=== PATIENT | male | born 1960 | race Hispanic/Latino ===

== ENCOUNTER → 2017-10-03 | Outpatient (CLI) | payer BC ==
[~2017-10-03] MED LIST: GLUCOPHAGE500 MG PO; METFORMIN HCL500 MG PO; SIMVASTATIN40 MG PO; cholesterol med
--- NOTE | 2017-10-06 08:44 | Diagnostic Imaging Report ---
TECHNIQUE: Magnetic resonance imaging of the RIGHT SHOULDER was performed WITHOUT injected contrast. COMPARISON: None available. HISTORY: Right shoulder pain FINDINGS: MUSCLES AND TENDONS: Rotator Cuff: Tendons: Full-thickness tear of the anterior supraspinatus at the humeral insertion measuring approximately 1 cm in transverse dimension. Axial image 10, coronal image 10, and sagittal image 7. Additional partial thickness articular sided tearing of the supraspinatus and anterior infraspinatus with retraction measuring approximately 2.5 cm coronal image 14. Muscles: No focal muscle atrophy. Biceps Tendon: The long head of the biceps tendon is intact in the bicipital groove. Intra-articular tendinosis. GLENOHUMERAL JOINT: Glenoid Labrum: No displaced tear. Articular Cartilage: No focal defect. AC JOINT AND ACROMION: Mild hypertrophic degenerative changes of the acromioclavicular joint with reactive edema. Mild subacromial spurring. BONE: No acute fracture. SOFT TISSUES: Subacromial subdeltoid bursal fluid. IMPRESSION: Full-thickness tear of the anterior supraspinatus at the humeral insertion with posterior propagation as a partial-thickness articular sided tear into the infraspinatus tendon with retraction of the deep fibers. Acromioclavicular arthrosis with reactive edema. Long head biceps intra-articular tendinosis Signed by: Dr. Audi Shabazz M.D. on 10/06/2017 8:40 AM
== END ==
LOC: MRI 16:42
PROVIDERS: ATTEND Internal Medicine
DX: M25.511 Pain in right shoulder (principal)

== ENCOUNTER → 2017-10-22 | Day surgery (SDC) | payer BC ==
[2017-10-21 15:58] LABS: ANION GAP 13.1 mmol/L (8-16); BLOOD UREA NITROGEN 18 mg/dL (7-26); BUN/CREATININE RATIO 15 (6-25); CALCIUM 9.6 mg/dL (8.4-10.2); CARBON DIOXIDE 27 mmol/L (22-29); CHLORIDE 102 mmol/L (98-107); CREATININE, SERUM 1.17 mg/dL (0.72-1.25); EST GLOMERULAR FILTRATION RATE > 60 ML/MIN (60-); GLUCOSE 212 mg/dL (74-118); POTASSIUM 4.1 mmol/L (3.5-5.1); SODIUM 138 mmol/L (136-145)
[~2017-10-22] MED LIST changes: +ACETAMINOPHEN 1000 MG/100 ML IV ONE; +ASPIR 8181 MG PO; +ATORVASTATIN CA20 MG PO; +CEFAZOLIN SOD 2 GM/D5W 50ML 50 ML IV ONE; +DEXAMETHASONE SOD PHOS INJ 4 MG/ML VIAL ONE; +FENTANYL CITRATE/PF 100MCG/2 ML INJ ONE; +GABAPENTIN100 MG PO; +INSULIN REGULAR, HUMAN 100 UNIT/1 ML 3ML VIAL ONE; +JARDIANCE PO; +KETOROLAC TROMETHAMINE 30 MG/ML VIAL ONE; +LEVEMIR100 UNIT/1 SC; +LISINOPRIL2.5 MG PO; +MIDAZOLAM HCL 2 MG/2 ML VIAL ONE; +NOVOLOG100 UNIT/1 SC; +ONDANSETRON HCL INJ 2 MG/ML VIAL ONE; +PROPOFOL IV EMULSION 10 MG/ML 20 ML VIAL ONE; +ROPIVACAINE 0.5% 5 MG/ML 30 ML SDV ONE; +SEVOFLURANE INHAL SOLN 250 ML PEN BTL ONE
--- OUTSIDE RECORDS SUMMARY | 2017-10-22 05:51 | XMS REPORT ---
Author Author [facility] Address Unknown Phone Unavailable Care Team Providers Care Intermediate Accountant Name Role Phone DONG VARGAS Unavailable Unavailable Problems This patient has no known problems. Allergies, Adverse Reactions, Alerts This patient has no known allergies or adverse reactions. Medications This patient has no known medications. Results Test Description Test Time Test Comments Text Results Atomic Results Result Comments MRI SHOULDER RIGHT WO [place] [address] Patient Name: MURIEL DANIELLE MR #: [id number] : 1960 Age/Sex: 57/M Req # : [id number] Adm Physician: Ordered by: DONG VARGAS MD Report #: [id number] Location: MRI Room/Bed: Procedure: [id number] MRI/MRI SHOULDER RIGHT WO Exam Date: Exam Time: REPORT STATUS: Signed TECHNIQUE: Magnetic resonance imaging of the RIGHT SHOULDER was performed WITHOUT injected contrast. COMPARISON: None available. HISTORY: Right shoulder pain FINDINGS: MUSCLES AND TENDONS: Rotator Cuff: Tendons: Full-thickness tear of the anterior supraspinatus at the humeral insertion measuring approximately 1 cm in transverse dimension. Axial image 10, coronal image 10, and sagittal image 7. Additional partial thickness articular sided tearing of the supraspinatus and anterior infraspinatus with retraction measuring approximately 2.5 cm coronal image 14. Muscles: No focal muscle atrophy. Biceps Tendon: The long head of the biceps tendon is intact in the bicipital groove. Intra-articular tendinosis. GLENOHUMERAL JOINT: Glenoid Labrum: No displaced tear. Articular Cartilage: No focal defect. AC JOINT AND ACROMION: Mild hypertrophic degenerative changes of the acromioclavicular joint with reactive edema. Mild subacromial spurring. BONE: No acute fracture. SOFT TISSUES: Subacromial subdeltoid bursal fluid. IMPRESSION: Full-thickness tear of the anterior supraspinatus at the humeral insertion with posterior propagation as a partial-thickness articular sided tear into the infraspinatus tendon with retraction of the deep fibers. Acromioclavicular arthrosis with reactive edema. Long head biceps intra-articular tendinosis Signed by: Dr. José Miguel Clayton M.D. on 10/06/2017 8:40 AM Dictated By: JOSÉ MIGUEL CLAYTON MD 9 COPY TO: DONG VARGAS MD
--- NOTE | 2017-10-23 09:18 | Operative Report ---
DATE OF PROCEDURE: October 22, 2017 PREOPERATIVE DIAGNOSES 1. Right rotator cuff tear. 2. Right acromioclavicular joint arthritis. POSTOPERATIVE DIAGNOSES 1. Right rotator cuff tear. 2. Right shoulder synovitis. 3. Right shoulder partial biceps tendon tear. 4. Right shoulder acromioclavicular joint arthrosis. OPERATIONS/PROCEDURES PERFORMED 1. The patient underwent a right shoulder examination under anesthesia. 2. Right shoulder arthroscopy. 3. Right shoulder arthroscopic debridement of synovitis. 4. Right shoulder arthroscopic debridement of a partial biceps tendon tear. 5. A right shoulder arthroscopic rotator cuff reconstruction. 6. A right shoulder arthroscopic subacromial decompression and acromioplasty. 7. A right shoulder arthroscopic distal clavicle resection. OUTPATIENT PROGRAM COORDINATOR: Taylor Villalobos. ANESTHESIA: General endotracheal intubation anesthesia, as well as a regional block. IV FLUIDS: As per the anesthesia record. BRIEF DESCRIPTION OF THE PATIENT'S OPERATIVE PROCEDURE: Mr. De Souza was taken to the operating room and placed in the supine position on the operating room table. Following induction of general anesthesia, the patient's chair was converted to a beach chair type position. The patient's right upper extremity was examined under anesthesia. There were no gross abnormalities of the shoulder joint. His arm was placed through a range of motion and found to have no evidence of instability at full motion. The patient's shoulder and upper extremity were the prepped and draped in a standard surgical fashion. Standard posterolateral and anterior portals were created with difficulty. The scope was placed within the shoulder joint atraumatically, and examination of the glenohumeral articulation demonstrated no significant evidence of chondromalacia. There were no loose bodies in the shoulder joint. There was diffuse synovitis throughout the shoulder joint. A probe was placed in the shoulder joint anteriorly, and the patient was found to have a partial tear of the biceps tendon as it exited the shoulder joint. The labrum was firmly attached to the glenoid. The patient additionally had evidence of a full-thickness rotator cuff tear with significant fraying of the articular surface of the rotator cuff. A shaver was placed in the shoulder joint, and the synovitis was debrided. The biceps tendon was also debrided at this time. The rotator cuff was debrided to healthy tissue. The insertion site was debrided to a bleeding bony bed. The shoulder was then deflated of its sterile normal saline. The scope was placed in the subacromial space and significant bursal inflammation was encountered. A lateral portal was created through outside-in technique. The shaver was placed in the subacromial space and bursectomy was performed. The rotator cuff tear was easily identified. An anterolateral portal was created without difficulty. The insertion site was debrided further to a bleeding bony bed. A single triple-loaded suture anchor was inserted into the greater tuberosity of the humerus, and suture arms from that anchor were then woven through the rotator cuff tissue. The rotator cuff tissue was then advanced into its normal footprint and tied firmly repairing the rotator cuff injury. The coracoacromial ligament was then resected and aggressive acromioplasty was performed. The shoulder was placed through a range of motion, and it was found to have no impingement. The anterior portal was then placed in the subacromial space, and the acromioclavicular joint was isolated. A 1-cm section of the acromion was resected using a shaver. The completion of the distal clavicle resection was confirmed by transferring the scope to the anterior portal and evaluating the AC joint directly. The shoulder was then deflated of its sterile normal saline. All portal sites were closed. Sterile dressings were applied. The patient was also provided a shoulder immobilizer. The patient was awakened and taken to the postanesthesia care in stable condition. Taylor Villalobos acted as registered nurse first assistant for this case and was necessary for the prepping and draping of the patient, as well as the positioning of the arm and the passage of suture to allow this case to be successful. Job#: [id number] JAYMIE
== END | disposition home or self-care (01) ==
LOC: OR 05:48
PROVIDERS: ATTEND Specialist
DX: M75.121 Complete rotator cuff tear or rupture of right shoulder, not specified as traumatic (principal); S46.211A Strain of muscle, fascia and tendon of other parts of biceps, right arm, initial encounter; M19.011 Primary osteoarthritis, right shoulder; M65.811 Other synovitis and tenosynovitis, right shoulder; E78.5 Hyperlipidemia, unspecified; E11.22 Type 2 diabetes mellitus with diabetic chronic kidney disease; I12.9 Hypertensive chronic kidney disease with stage 1 through stage 4 chronic kidney disease, or unspecified chronic kidney disease; N18.9 Chronic kidney disease, unspecified; X58.XXXA Exposure to other specified factors, initial encounter; Z01.810 Encounter for preprocedural cardiovascular examination; Z01.812 Encounter for preprocedural laboratory examination; Z79.82 Long term (current) use of aspirin; Z79.4 Long term (current) use of insulin; Z68.30 Body mass index [BMI] 30.0-30.9, adult; Z87.828 Personal history of other (healed) physical injury and trauma; Z91.81 History of falling; Z89.431 Acquired absence of right foot
CPT/HCPCS: 29824; 29826; 29827; 36415 ×2; 80048; 82948; 93005; J1100; J1885; J2250; J2405; J2795

== ENCOUNTER 2018-01-22 14:00 | Outpatient (RCR) | payer BC ==
[~2018-01-22 14:00] MED LIST changes: -ACETAMINOPHEN 1000 MG/100 ML IV ONE; -CEFAZOLIN SOD 2 GM/D5W 50ML 50 ML IV ONE; -DEXAMETHASONE SOD PHOS INJ 4 MG/ML VIAL ONE; -FENTANYL CITRATE/PF 100MCG/2 ML INJ ONE; -INSULIN REGULAR, HUMAN 100 UNIT/1 ML 3ML VIAL ONE; -KETOROLAC TROMETHAMINE 30 MG/ML VIAL ONE; -MIDAZOLAM HCL 2 MG/2 ML VIAL ONE; -ONDANSETRON HCL INJ 2 MG/ML VIAL ONE; -PROPOFOL IV EMULSION 10 MG/ML 20 ML VIAL ONE; -ROPIVACAINE 0.5% 5 MG/ML 30 ML SDV ONE; -SEVOFLURANE INHAL SOLN 250 ML PEN BTL ONE
== END 2018-01-24 ==
LOC: PT 14:00
PROVIDERS: ATTEND Specialist
DX: S46.011A Strain of muscle(s) and tendon(s) of the rotator cuff of right shoulder, initial encounter (principal); M25.511 Pain in right shoulder; M25.611 Stiffness of right shoulder, not elsewhere classified; M62.81 Muscle weakness (generalized)

== ENCOUNTER → 2018-02-24 | Outpatient (RCR) | payer BC | LOC: PT 01-26 14:01 | PROVIDERS: ATTEND Specialist | DX: S43.421A Sprain of right rotator cuff capsule, initial encounter (principal); M25.511 Pain in right shoulder; M25.611 Stiffness of right shoulder, not elsewhere classified; M62.81 Muscle weakness (generalized) ==

== ENCOUNTER 2018-03-26 12:00 | Outpatient (RCR) | payer BC | END 2018-03-27 | LOC: PT 12:00 | PROVIDERS: ATTEND Specialist | DX: S43.421A Sprain of right rotator cuff capsule, initial encounter (principal); M25.511 Pain in right shoulder; M25.611 Stiffness of right shoulder, not elsewhere classified; M62.81 Muscle weakness (generalized) | CPT/HCPCS: 97010 ×6; 97110 ×12; 97140 ×2; G0283 ==

== ENCOUNTER 2018-04-24 13:48 | Outpatient (RCR) | payer BC | END 2018-04-26 | LOC: PT 13:48 | PROVIDERS: ATTEND Specialist | DX: M75.101 Unspecified rotator cuff tear or rupture of right shoulder, not specified as traumatic (principal); M25.511 Pain in right shoulder; M25.611 Stiffness of right shoulder, not elsewhere classified; M62.81 Muscle weakness (generalized) ==

== ENCOUNTER → 2018-05-12 | Outpatient (CLI) | payer BC ==
[~2018-05-12] MED LIST changes: +GADOBENATE DIMEGLUMINE 1 ML IV ONE; +IOPAMIDOL 200 MG/ML 20 ML VIAL IT ONE; +TRULICITY INJ
[2018-05-12 13:30] LABS: BLOOD UREA NITROGEN 16 mg/dL (7-26); BUN/CREATININE RATIO 18 (6-25); CREATININE, SERUM 0.87 mg/dL (0.72-1.25); EST GLOMERULAR FILTRATION RATE > 60 ML/MIN (60-)
--- NOTE | 2018-05-12 15:25 | Diagnostic Imaging Report ---
MRI of the right shoulder with contrast. History: Shoulder pain. Decreased range of motion. Rotator cuff tear. Comparison: October 03, 2017 Technique: Multiplanar multisequence MRI of the shoulder after the administration of intra-articular gadolinium contrast Findings: Rotator cuff: Status post repair of the previously seen full-thickness tear of the anterior supraspinatus at the humeral insertion with associated postsurgical change. There is now a small full-thickness perforation involving the anterior fibers of the supraspinatus tendon adjacent to the surgical screw with gadolinium contrast material extending into the subacromial/subdeltoid space. The majority of the repaired rotator cuff is intact. Osseous acromion complex: There a type II acromion with mild lateral downsloping. Acromioclavicular arthrosis with reactive edema. Glenohumeral joint: The labrum is intact. The articular cartilage surfaces are intact. The humeral head is well-seated in the glenoid fossa. Biceps tendon: Intra-articular biceps tendinosis. Other findings: 7.0 mm loose body in the inferior glenohumeral joint best seen on series 3 image 8. Impression: Status post repair of the previously seen full-thickness tear of the anterior supraspinatus at the humeral insertion with associated postsurgical change. There is now a small full-thickness perforation involving the anterior fibers of the supraspinatus tendon adjacent to the surgical screw with gadolinium contrast material extending into the subacromial/subdeltoid space. The majority of the repaired rotator cuff is intact. Signed by: Dr. Edmond Ospina M.D. on 05/12/2018 3:22 PM
--- NOTE | 2018-05-14 11:05 | Diagnostic Imaging Report ---
Procedure: Right shoulder arthrogram chipper machine operator: Dr. Dora Shah Pre-operative diagnosis: Right shoulder pain Post-operative diagnosis: Right shoulder pain Medications: Lidocaine 1% for local anesthesia, Intra-articular: dilute Gadovist contrast 10 cc (0.1 cc of Gadovist in 10 cc of normal saline), 2 cc intra-articular Isovue iodated contrast; 1 cc of 1% lidocaine Fluoroscopy time: 2.2 minutes; Dose area product: 23.81 mGy-cm2 Estimated blood loss: None Specimens: None Implants: None DISCUSSION: Informed consent was obtained and documented in the medical record after discussion of risks and benefits. The patient was placed in the supine position on the fluoroscopic table with the right shoulder externally rotated. The skin overlying the superomedial humeral head was marked and 1% lidocaine was administered for local anesthesia. Then under intermittent fluoroscopic guidance, a 22-gauge needle was advanced to the superomedial surface of the humeral head. Subsequently, a mixture of dilute Gadovist contrast with saline and Isovue 300 was slowly injected into the joint (dosing above) with intermittent fluoroscopy. The needle was removed. Images were obtained in internal and external rotation in neutral and abduction positions. The patient tolerated the procedure well without immediate complication. FINDINGS: Intra-articular injection of contrast is present. Some contrast is noted in the subacromial/subdeltoid bursa, suggestive of rotator cuff tear. IMPRESSION: Right shoulder arthrogram with fluoroscopic guidance as above. Some contrast is noted in the subacromial/subdeltoid bursa, suggestive of rotator cuff tear. Plan for subsequent MRI. Signed by: Dr. Dora Shah MD on 05/14/2018 11:02 AM
== END ==
LOC: DX 12:03
PROVIDERS: ATTEND Specialist
DX: M75.121 Complete rotator cuff tear or rupture of right shoulder, not specified as traumatic (principal)
CPT/HCPCS: 23350; 36415; 73222; 77002; 82565; 84520; Q9966; Q9967

== ENCOUNTER 2018-05-15 14:00 | Outpatient (RCR) | payer BC ==
[~2018-05-15 14:00] MED LIST changes: -GADOBENATE DIMEGLUMINE 1 ML IV ONE; -IOPAMIDOL 200 MG/ML 20 ML VIAL IT ONE; -TRULICITY INJ
[2018-05-22] MEDS ORDERED: TRULICITY INJ (09:27)
== END 2018-05-27 ==
LOC: PT 14:00
PROVIDERS: ATTEND Specialist
DX: M75.101 Unspecified rotator cuff tear or rupture of right shoulder, not specified as traumatic (principal); M25.511 Pain in right shoulder; M25.611 Stiffness of right shoulder, not elsewhere classified; M62.81 Muscle weakness (generalized)

== ENCOUNTER → 2018-05-27 | Day surgery (SDC) | payer BC ==
[2018-05-22 09:57] LABS: ANION GAP 14.3 mmol/L (8-16); BLOOD UREA NITROGEN 21 mg/dL (7-26); BUN/CREATININE RATIO 20 (6-25); CALCIUM 10.1 mg/dL (8.4-10.2); CARBON DIOXIDE 28 mmol/L (22-29); CHLORIDE 100 mmol/L (98-107); CREATININE, SERUM 1.07 mg/dL (0.72-1.25); EST GLOMERULAR FILTRATION RATE > 60 ML/MIN (60-); GLUCOSE 171 mg/dL (74-118); POTASSIUM 4.3 mmol/L (3.5-5.1); SODIUM 138 mmol/L (136-145)
--- NOTE | 2018-05-22 10:27 | Diagnostic Imaging Report ---
PROCEDURE: Frontal and lateral views of the chest. COMPARISON: Chest radiograph 07/27/2013. INDICATIONS: F/U POST RENAL SX FINDINGS: Lines/tubes: None. Lungs: The lungs are moderately inflated. There is no evidence of pneumonia or pulmonary edema. Mild patchy right basilar opacity may represent atelectasis. Pleura: There is no pleural effusion or pneumothorax. Heart and mediastinum: The cardiomediastinal silhouette is unremarkable. Atherosclerotic calcification in the aortic arch. Bones: No acute bony abnormality. IMPRESSION: No acute radiographic abnormality. Dictated by: GUSTAVO NUNES M.D. on 05/22/2018 at 10:35 Electronically approved by: GUSTAVO NUNES M.D. on 05/22/2018 at 10:35
[~2018-05-27] MED LIST changes: +CEFAZOLIN SOD 2 GM/D5W 50ML 50 ML IV ONE; +DEXAMETHASONE SOD PHOS INJ 4 MG/ML VIAL ONE; +FENTANYL CITRATE/PF 100MCG/2 ML INJ ONE; +LIDOCAINE 2%/ EPINEPHRINE 20ML MDV ONE; +LIDOCAINE HCL 2% LOCAL INJ 5 ML SDV VIAL INJ ONE; +MIDAZOLAM HCL 2 MG/2 ML VIAL ONE; +ONDANSETRON HCL INJ 2 MG/ML VIAL ONE; +PROPOFOL IV EMULSION 10 MG/ML 20 ML VIAL ONE; +ROCURONIUM BROMIDE 10 MG/ML 5ML VIAL ONE; +ROPIVACAINE 0.5% 5 MG/ML 30 ML SDV ONE; +SEVOFLURANE INHAL SOLN 250 ML PEN BTL ONE; +TRULICITY INJ
--- NOTE | 2018-05-27 10:02 | Operative Report ---
DATE OF PROCEDURE: May 27, 2018 PREOPERATIVE DIAGNOSES 1. Recurrent right rotator cuff tear. 2. Right biceps tendon tear. POSTOPERATIVE DIAGNOSES 1. Recurrent right rotator cuff tear. 2. Right biceps tear. 3. Right shoulder synovitis. 4. Right shoulder arthrofibrosis. OPERATIONS/PROCEDURES PERFORMED 1. The patient underwent a right shoulder examination under anesthesia. 2. Right shoulder arthroscopy. 3. Right shoulder manipulation of the shoulder under anesthesia. 4. Right shoulder arthroscopic debridement of synovitis. 5. Right shoulder arthroscopic biceps tenolysis. 6. Right shoulder arthroscopic repair of a recurrent rotator cuff tear. 7. Right shoulder arthroscopic subacromial decompression and acromioplasty. OIL RECOVERY OPERATOR: ANESTHESIA: General endotracheal intubation anesthesia, as well as an interscalene block. IV FLUIDS: Per the anesthesia record. BRIEF DESCRIPTION OF THE PATIENT'S OPERATIVE PROCEDURE: Mr. De Souza was taken to the operating room and placed in the supine position on the operating table. Following the induction of general anesthesia, as well as endotracheal intubation, the patient's right shoulder was examined under anesthesia. He was found to have mild stiffness in the shoulder at the end range of motion. The shoulder was manipulated under anesthesia and fibrous bands were felt to give way within the shoulder restoring full motion to the shoulder joint. The shoulder was then prepped and draped in the standard surgical fashion. Standard posterolateral and anterior portals were created without difficulty. Scope was placed within the shoulder joint atraumatically. Examination of the glenohumeral articulation demonstrated no significant evidence of bone abnormality. There were no loose bodies in the shoulder joint. There was synovitis within the shoulder. Examination of the biceps tendon demonstrated a torn and macerated biceps tendon that involved greater than 50% of the biceps tendon itself. Examination of the rotator cuff tissue demonstrated partial thickness tearing of the anterior leading edge of the rotator cuff involving greater than 50% of the anterior fibers. There was sutures evident within the shoulder consistent with his previous rotator cuff reconstruction. A shaver was placed in the shoulder joint. Biceps was debrided. The biceps was drawn into the shoulder joint, and the tear was found to extend exterior to the shoulder involving a greater extent of the biceps tendon. The decision was therefore made to provide the patient a biceps tenolysis. The biceps was released from its attachment into the glenoid and superior labrum. The biceps stump was debrided. The shaver was used to debride synovitis within the shoulder joint. The rotator cuff injury was also debrided at this time. The insertion site was debrided to a bleeding bony bed. An elevator was used to elevate the remaining portion of the rotator cuff that was attached and freed from the bone. The shaver was then placed in the subacromial space. The rotator cuff injury was easily identified. It was further debrided. The sutures from the previous rotator cuff reconstruction were removed. A single anchor was inserted into the shoulder joint. The suture arms from that anchor were woven through the rotator cuff tissue. The rotator cuff tissue was then advanced and tied firmly over the normal insertion site. This resulted in complete repair of the tear. There was a downward sloping acromion anteriorly and this was debrided with an acromioplasty. The shoulder was then deflated of its sterile normal saline. All portal sites were closed. Sterile dressings were applied. The patient was provided a shoulder immobilizer, awakened and taken to the postanesthesia care unit in stable condition. acted as the assistant professor sculpture for this case and was necessary for both prepping and draping the patient, as well as positioning the arm and passage of sutures that allowed this case to be successful. Job#: [id number] JAYMIE
[2018-05-27 10:10] VITALS: BP 155/94
== END | disposition home or self-care (01) ==
LOC: OR 05:09
PROVIDERS: ATTEND Specialist
DX: S46.091A Other injury of muscle(s) and tendon(s) of the rotator cuff of right shoulder, initial encounter (principal); S46.211A Strain of muscle, fascia and tendon of other parts of biceps, right arm, initial encounter; M65.811 Other synovitis and tenosynovitis, right shoulder; M24.611 Ankylosis, right shoulder; E11.9 Type 2 diabetes mellitus without complications; I10 Essential (primary) hypertension; W06.XXXA Fall from bed, initial encounter; Z01.810 Encounter for preprocedural cardiovascular examination; Z01.812 Encounter for preprocedural laboratory examination; Z01.818 Encounter for other preprocedural examination; Z79.4 Long term (current) use of insulin; Z79.82 Long term (current) use of aspirin; Z68.30 Body mass index [BMI] 30.0-30.9, adult
CPT/HCPCS: 29826; 29827; 36415 ×2; 71046; 80048; 82948; 93005; J0690; J1100; J2001 ×2; J2250; J2405; J2704; J2795

== ENCOUNTER → 2018-06-23 | Outpatient (CLI) | payer BC ==
[~2018-06-23] MED LIST changes: -CEFAZOLIN SOD 2 GM/D5W 50ML 50 ML IV ONE; -DEXAMETHASONE SOD PHOS INJ 4 MG/ML VIAL ONE; -FENTANYL CITRATE/PF 100MCG/2 ML INJ ONE; -LIDOCAINE 2%/ EPINEPHRINE 20ML MDV ONE; -LIDOCAINE HCL 2% LOCAL INJ 5 ML SDV VIAL INJ ONE; -MIDAZOLAM HCL 2 MG/2 ML VIAL ONE; -ONDANSETRON HCL INJ 2 MG/ML VIAL ONE; -PROPOFOL IV EMULSION 10 MG/ML 20 ML VIAL ONE; -ROCURONIUM BROMIDE 10 MG/ML 5ML VIAL ONE; -ROPIVACAINE 0.5% 5 MG/ML 30 ML SDV ONE; -SEVOFLURANE INHAL SOLN 250 ML PEN BTL ONE
--- NOTE | 2018-06-23 16:10 | Diagnostic Imaging Report ---
EXAMINATION: PA and lateral views of the chest. COMPARISON: 2 view chest 05/22/2018 CLINICAL HISTORY: Preoperative study for foot surgery DISCUSSION: Lungs are well-inflated. No focal airspace consolidation, pleural effusion, or pneumothorax. Cardiomediastinal contour is notable for atherosclerotic calcification of the thoracic aorta. Normal heart size. No overt pulmonary edema. No acute osseous abnormalities. IMPRESSION: No acute cardiopulmonary abnormalities. Signed by: Dr. Bishnu Nash M.D. on 06/23/2018 4:07 PM
== END ==
LOC: RAD 15:41
PROVIDERS: ATTEND Internal Medicine
DX: Z01.818 Encounter for other preprocedural examination (principal)
CPT/HCPCS: 71046

== ENCOUNTER 2018-08-25 13:56 | Outpatient (RCR) | payer BC | END 2018-08-27 | LOC: PT 13:56 | PROVIDERS: ATTEND Specialist | DX: M25.511 Pain in right shoulder (principal); M25.611 Stiffness of right shoulder, not elsewhere classified; M62.81 Muscle weakness (generalized) ==

== ENCOUNTER 2018-09-22 13:00 | Outpatient (RCR) | payer BC ==
[2018-09-24] MEDS ORDERED: ASPIR 8181 MG PO (11:51)
== END 2018-09-24 ==
LOC: PT 13:00
PROVIDERS: ATTEND Specialist
DX: M25.511 Pain in right shoulder (principal); M25.611 Stiffness of right shoulder, not elsewhere classified; S43.421A Sprain of right rotator cuff capsule, initial encounter; M62.81 Muscle weakness (generalized)

== ENCOUNTER 2018-09-24 10:42 | Emergency (ER) | payer BC ==
[~2018-09-24] VITALS: Ht 182.9 cm; Wt 89.4 kg
[2018-09-24] MEDS ORDERED: SODIUM CHLORIDE 0.9% 1000ML 1,000 ML IV SCH ×5 (11:15→23:30)
[2018-09-24] MEDS ORDERED: SODIUM CHLORIDE 0.9% 1000ML 2,000 ML ONE (11:29)
[2018-09-24 11:38] LABS: BASOPHILS % 0.6 % (0.0-1.0); EOSINOPHILS # (AUTO) 0.1 (0.0-0.4); EOSINOPHILS % 0.7 % (0.0-6.0); HEMATOCRIT 56.1 % (38.2-49.6); HEMOGLOBIN 18.9 g/dL (14.0-18.0); LYMPHOCYTES # (AUTO) 1.2 (1.0-3.2); LYMPHOCYTES % 16.9 % (18.0-39.1); MEAN CORPUSCULAR HEMOGLOBIN 28.5 pg (28-32); MEAN CORPUSCULAR HGB CONC 33.7 g/dL (31-35); MEAN CORPUSCULAR VOLUME 84.7 fL (81-99); MONOCYTES # (AUTO) 0.4 (0.2-0.8); MONOCYTES % 5.5 % (4.4-11.3); NEUTROPHILS # (AUTO) 5.4 (2.1-6.9); NEUTROPHILS % 75.9 % (38.7-80.0); PLATELET COUNT 183 x10e3/uL (140-360); RED BLOOD COUNT 6.62 x10e6/uL (4.3-5.7); RED CELL DISTRIBUTION WIDTH 13.5 % (11.7-14.4)
--- NOTE | 2018-09-24 11:39 | NUR ---
RESPIRATORY AT BEDSIDE OBTAINING BLOOD GAS
[2018-09-24] MEDS ORDERED: ASPIR 8181 MG PO (11:51)
[2018-09-24 12:08] LABS: ALANINE AMINOTRANSFERASE 34 IU/L (0-55); ALBUMIN 4.2 g/dL (3.5-5.0); ALBUMIN/GLOBULIN RATIO 1.1 (0.8-2.0); ALKALINE PHOSPHATASE 142 IU/L (40-150); ANION GAP 20.4 mmol/L (8-16); BLOOD UREA NITROGEN 16 mg/dL (7-26); BUN/CREATININE RATIO 13 (6-25); CALCIUM 10.2 mg/dL (8.4-10.2); CARBON DIOXIDE 22 mmol/L (22-29); CHLORIDE 93 mmol/L (98-107); EST GLOMERULAR FILTRATION RATE > 60 ML/MIN (60-); POTASSIUM 4.4 mmol/L (3.5-5.1); SODIUM 131 mmol/L (136-145)
[2018-09-24 12:10] LABS: GLUCOSE 465 mg/dL (74-118)
[2018-09-24 12:48] LABS: BILIRUBIN,URINE NEGATIVE (NEGATIVE); CLARITY,URINE CLEAR (CLEAR); COLOR,URINE YELLOW (YELLOW); KETONES,URINE 1+ (NEGATIVE); LEUKOCYTE ESTERASE ,URINE NEGATIVE (NEGATIVE); NITRITE,URINE NEGATIVE (NEGATIVE); PROTEIN,URINE DIPSTICK NEGATIVE (NEGATIVE); URINE UROBILINOGEN 0.2 mg/dL (0.2 - 1)
[2018-09-24] MEDS ORDERED: DEXTROSE 5%/0.45% SOD CHL 1,000 ML IV SCH (12:51)
--- NOTE | 2018-09-24 12:56 | NUR ---
PER DR. ACOSTA. GIVE PATIENT 10 UNITS IV REGULAR INSULIN HOLD OFF ON INFUSIONS FOR INSULIN /MAG/POTTASIUM UNTILL SERUM OSMOL REPORT IS BACK
[2018-09-24] MEDS ORDERED: INSULIN REGULAR, HUMAN 3ML VL 1 UNIT in SODIUM CHLORIDE 0.9% 100 ML IV SCH ×2 (13:00)
[2018-09-24] MEDS ORDERED: POTASSIUM CHLORIDE 20MEQ/100ML 200 ML IV PRN (13:00)
[2018-09-24] MEDS ORDERED: MAGNESIUM SULF 1GRAM/DEXTROSE 100 ML IV PRN (13:00)
[2018-09-24] MEDS ORDERED: INSULIN REGULAR, HUMAN 100 UNIT/1 ML 3ML VIAL SQ ONE (13:00)
[2018-09-24] MEDS ORDERED: POTASSIUM CHLORIDE 20MEQ/100ML 100 ML IV PRN (13:00)
[2018-09-24] MEDS ORDERED: INSULIN REGULAR, HUMAN 3ML VL 100 UNIT in SODIUM CHLORIDE 0.9% 100 ML IV SCH ×4 (13:00)
[2018-09-24 13:01] LABS: BACTERIA,URINE RARE /HPF; EPITHELIAL CELLS,URINE RARE /LPF; WBC,URINE (MAN) 0-5 /HPF (0-5)
[2018-09-24] MEDS ORDERED: INSULIN REGULAR, HUMAN 100 UNIT/1 ML 3ML VIAL ONE (13:04)
[2018-09-24 13:17] LABS: OSMOLALITY,SERUM 284 mOsm/kg (278-305)
--- NOTE | 2018-09-24 14:36 | NUR ---
PER LAB, BLOOD HEMOLYZED. REDRAWN A 2ND TIME
--- NOTE | 2018-09-24 15:05 | NUR ---
REPORT FROM LAB. BLOOD HEMOLYZED FOR 3RD TIME. REQUESTED THEY COME DRAW
--- NOTE | 2018-09-24 15:20 | NUR ---
LAB AT BEDSIDE DRAWING BMP
[2018-09-24 16:10] LABS: ANION GAP 14.2 mmol/L (8-16); BLOOD UREA NITROGEN 14 mg/dL (7-26); BUN/CREATININE RATIO 16 (6-25); CALCIUM 9.1 mg/dL (8.4-10.2); CARBON DIOXIDE 23 mmol/L (22-29); CHLORIDE 101 mmol/L (98-107); CREATININE, SERUM 0.87 mg/dL (0.72-1.25); EST GLOMERULAR FILTRATION RATE > 60 ML/MIN (60-); GLUCOSE 293 mg/dL (74-118); MAGNESIUM 2.2 MG/DL (1.3-2.1); POTASSIUM 4.2 mmol/L (3.5-5.1); SODIUM 134 mmol/L (136-145)
--- NOTE | 2018-09-24 16:58 | NUR ---
PATIENT STATES HE HAS BEEN OUT OF HIS [employer] X 2 WEEKS AND HIS METFORMIN X 1 WEEK. HIS IF CALLING TO SEE IF HIS PRESCRIPTIONS WERE CALLED IN AND ARE AVAILABLE FOR [employer]
[2018-09-28 08:54] LABS: ABG PCO2 46 mmHg (41-51); ABG PH 7.37 (7.31-7.41)
[2018-09-28 08:55] LABS: ABG HCO3 27 mmol/L (23-28); ABG PO2 40 mmHg (80-105)
== END 2018-09-24 18:24 | disposition home or self-care (01) ==
LOC: ER 10:42
DX: E11.65 Type 2 diabetes mellitus with hyperglycemia (principal); R51 Headache
CPT/HCPCS: 36415; 80048; 80053; 81001; 82805; 82947; 82948; 83605; 83735; 84295; 84520; 85025; 93005; 99284; J1817; J7030

== ENCOUNTER 2018-10-23 14:00 | Outpatient (RCR) | payer BC | END 2018-10-25 | LOC: PT 14:00 | PROVIDERS: ATTEND Specialist | DX: S46.091A Other injury of muscle(s) and tendon(s) of the rotator cuff of right shoulder, initial encounter (principal); M25.511 Pain in right shoulder; M25.611 Stiffness of right shoulder, not elsewhere classified ==

== ENCOUNTER 2018-11-20 14:00 | Outpatient (RCR) | payer BC | END 2018-11-24 | LOC: PT 14:00 | PROVIDERS: ATTEND Specialist | DX: M25.511 Pain in right shoulder (principal); M25.611 Stiffness of right shoulder, not elsewhere classified; M75.101 Unspecified rotator cuff tear or rupture of right shoulder, not specified as traumatic ==

== ENCOUNTER 2018-12-15 13:58 | Outpatient (RCR) | payer BC | END 2018-12-25 | LOC: PT 13:58 | PROVIDERS: ATTEND Specialist | DX: M25.511 Pain in right shoulder (principal); M25.611 Stiffness of right shoulder, not elsewhere classified; M75.101 Unspecified rotator cuff tear or rupture of right shoulder, not specified as traumatic ==

== ENCOUNTER 2019-01-21 08:00 | Outpatient (RCR) | payer BC, OTHER | END 2019-01-24 | LOC: PT 08:00 | PROVIDERS: ATTEND Specialist | DX: M75.101 Unspecified rotator cuff tear or rupture of right shoulder, not specified as traumatic (principal); M25.511 Pain in right shoulder; M25.611 Stiffness of right shoulder, not elsewhere classified ==

== ENCOUNTER 2019-02-23 07:58 | Outpatient (RCR) | payer BC, OTHER | END 2019-02-24 | LOC: PT 07:58 | PROVIDERS: ATTEND Specialist | DX: S40.011A Contusion of right shoulder, initial encounter (principal); M25.511 Pain in right shoulder; M25.611 Stiffness of right shoulder, not elsewhere classified ==

== ENCOUNTER 2019-03-16 08:00 | Outpatient (RCR) | payer BC, OTHER | END 2019-03-27 | LOC: PT 08:00 | PROVIDERS: ATTEND Specialist | DX: M25.511 Pain in right shoulder (principal); M75.101 Unspecified rotator cuff tear or rupture of right shoulder, not specified as traumatic; S40.011A Contusion of right shoulder, initial encounter; M25.611 Stiffness of right shoulder, not elsewhere classified; M62.81 Muscle weakness (generalized) ==

== ENCOUNTER → 2020-10-05 | Outpatient (CLI) | payer OTHER | LOC: MRI 10:51 | PROVIDERS: ATTEND Specialist | DX: S83.222A Peripheral tear of medial meniscus, current injury, left knee, initial encounter (principal); S83.262A Peripheral tear of lateral meniscus, current injury, left knee, initial encounter ==

== ENCOUNTER → 2020-10-18 | Day surgery (SDC) | payer MEDICARE, OTHER ==
[2020-10-16 16:12] LABS: ANION GAP 15.5 mmol/L (8-16); CREATININE, SERUM 1.31 mg/dL (0.72-1.25); POTASSIUM 4.5 mmol/L (3.5-5.1)
[~2020-10-18] MED LIST changes: +BUPIVACAINE HCL 0.5% INJ 30 ML VIAL INJ ONE; +CEFAZOLIN SOD 1 GM/NS 50ML 100 ML IV ONE; +DEXAMETHASONE SOD PHOS INJ 4 MG/ML VIAL ONE; +EPHEDRINE SULFATE INJ 50 MG/ML VIAL ONE; +FENTANYL CITRATE/PF 100MCG/2 ML INJ ONE; +INSULIN REGULAR, HUMAN 100 UNIT/1 ML 3ML VIAL ONE; +LIDOCAINE HCL 2% LOCAL INJ 5 ML SDV VIAL INJ ONE; +METFORMIN HCL850 MG PO; +MIDAZOLAM HCL 2 MG/2 ML VIAL ONE; +ONDANSETRON HCL INJ 2MG/ML 2ML 2 MG/ML VIAL ONE; +PROPOFOL IV EMULSION 10 MG/ML 20 ML VIAL ONE; +SEVOFLURANE INHAL SOLN 250 ML PEN BTL ONE; +TRESIBA100 UNIT/1 SC
[2020-10-18 15:10] VITALS: BP 143/82
== END | disposition home or self-care (01) ==
LOC: OR 08:00
PROVIDERS: ATTEND Specialist
DX: S83.222A Peripheral tear of medial meniscus, current injury, left knee, initial encounter (principal); S83.262A Peripheral tear of lateral meniscus, current injury, left knee, initial encounter; M17.12 Unilateral primary osteoarthritis, left knee; M22.42 Chondromalacia patellae, left knee; I10 Essential (primary) hypertension; E11.9 Type 2 diabetes mellitus without complications; X58.XXXA Exposure to other specified factors, initial encounter; Z01.810 Encounter for preprocedural cardiovascular examination; Z01.812 Encounter for preprocedural laboratory examination; Z20.822 Contact with and (suspected) exposure to COVID-19; Z79.84 Long term (current) use of oral hypoglycemic drugs
CPT/HCPCS: 29881; 36415 ×2; 80048; 82948; 93005; J0690; J1100; J2001; J2250; J2405; J2704; J3010; U0002; J1817

== ENCOUNTER 2023-08-15 13:53 | Inpatient (IN) | payer MEDICARE, OTHER ==
[~2023-08-15] VITALS: Ht 177.8 cm; Wt 108.9 kg
[~2023-08-15 13:53] MED LIST changes: -BUPIVACAINE HCL 0.5% INJ 30 ML VIAL INJ ONE; -CEFAZOLIN SOD 1 GM/NS 50ML 100 ML IV ONE; -DEXAMETHASONE SOD PHOS INJ 4 MG/ML VIAL ONE; -EPHEDRINE SULFATE INJ 50 MG/ML VIAL ONE; -FENTANYL CITRATE/PF 100MCG/2 ML INJ ONE; -INSULIN REGULAR, HUMAN 100 UNIT/1 ML 3ML VIAL ONE; -LIDOCAINE HCL 2% LOCAL INJ 5 ML SDV VIAL INJ ONE; -MIDAZOLAM HCL 2 MG/2 ML VIAL ONE; -ONDANSETRON HCL INJ 2MG/ML 2ML 2 MG/ML VIAL ONE; -PROPOFOL IV EMULSION 10 MG/ML 20 ML VIAL ONE; -SEVOFLURANE INHAL SOLN 250 ML PEN BTL ONE
[2023-08-15] MEDS ORDERED: SODIUM CHLORIDE 0.9% 1000ML 1,000 ML IV STA (16:12)
[2023-08-15] MEDS ORDERED: ONDANSETRON HCL INJ 2MG/ML 2ML 2 MG/ML VIAL IV STA (16:12)
[2023-08-15] MEDS ORDERED: Morphine 4mg INJECTION 4 MG/ML INJ IV STA (16:12)
[2023-08-15 16:22] LABS: BASOPHILS # (AUTO) 0.1 (0.0-0.1); BASOPHILS % 0.3 % (0.0-1.0); EOSINOPHILS % 0.3 % (0.0-6.0); HEMATOCRIT 59.8 % (38.2-49.6); HEMOGLOBIN 19.4 g/dL (14.0-18.0); LYMPHOCYTES # (AUTO) 1.8 (1.0-3.2); LYMPHOCYTES % 12.5 % (18.0-39.1); MEAN CORPUSCULAR HEMOGLOBIN 30.5 pg (28-32); MEAN CORPUSCULAR HGB CONC 32.4 g/dL (31-35); MONOCYTES # (AUTO) 0.7 (0.2-0.8); MONOCYTES % 4.9 % (4.4-11.3); NEUTROPHILS # (AUTO) 11.9 (2.1-6.9); NEUTROPHILS % 81.7 % (38.7-80.0); PLATELET COUNT 226 x10e3/uL (140-360); RED BLOOD COUNT 6.36 x10e6/uL (4.3-5.7); RED CELL DISTRIBUTION WIDTH 14.2 % (11.7-14.4); WHITE BLOOD COUNT 14.55 x10e3/uL (4.8-10.8)
[2023-08-15 16:25] LABS: PROTHROMBIN TIME 13.4 seconds (11.9-14.5)
[2023-08-15 16:26] LABS: PARTIAL THROMBOPLASTIN TIME 25.5 seconds (23.8-35.5)
[2023-08-15 16:35] LABS: ALBUMIN 4.2 g/dL (3.5-5.0); ANION GAP 18.1 mmol/L (8-16); BILIRUBIN,TOTAL 0.7 mg/dL (0.2-1.2); CALCIUM 10.3 mg/dL (8.4-10.2); CREATININE, SERUM 1.18 mg/dL (0.72-1.25); MAGNESIUM 2.1 MG/DL (1.3-2.1); POTASSIUM 4.1 mmol/L (3.5-5.1); TOTAL PROTEIN 8.3 g/dL (6.5-8.1)
[2023-08-15 16:41] LABS: TROPONIN I 0.01 ng/mL (0-0.300)
[2023-08-15] MEDS ORDERED: IOPAMIDOL 370 MG/ML 100 ML INFUS..BTL INJ ONE (17:01)
[2023-08-15 17:02] LABS: BILIRUBIN,URINE NEGATIVE (NEGATIVE); CLARITY,URINE SL CLOUDY (CLEAR); COLOR,URINE YELLOW (YELLOW); GLUCOSE, URINE >=1000 (NEGATIVE); KETONES,URINE NEGATIVE (NEGATIVE); LEUKOCYTE ESTERASE ,URINE NEGATIVE (NEGATIVE); NITRITE,URINE NEGATIVE (NEGATIVE); PH,URINE 5 (5 - 7); PROTEIN,URINE DIPSTICK NEGATIVE (NEGATIVE); URINE UROBILINOGEN 0.2 mg/dL (0.2 - 1)
[2023-08-15 17:21] LABS: TRANSITIONAL EPI CELLS,URINE MODERATE; WBC,URINE (MAN) 0-5 /HPF (0-5)
[2023-08-15] MEDS: Morphine 4mg INJECTION 4 MG/ML INJ IV PRN (19:57)
[2023-08-15] MEDS: SODIUM CHLORIDE 0.9% 1000ML 1,000 ML IV SCH (19:57)
[2023-08-15 21:36] VITALS: BP 124/73; PULSE 79; RESP 18; TEMP 97.7; O2SAT 97
[2023-08-15] MEDS: METRONIDAZOLE 500MG/NS 100ML 100 ML IV SCH (21:37)
[2023-08-15 22:00] VITALS: BP 123/64; PULSE 79; RESP 18; TEMP 97.7; O2SAT 98
[2023-08-15] MEDS ORDERED: JARDIANCE25 MG (22:30)
[2023-08-16] VITALS (8 sets, daily range): BP systolic 118–157; BP diastolic 53–79; PULSE 68–81; RESP 15–20; TEMP 97.2–98.2; O2SAT 96–99
[2023-08-16] MEDS: ONDANSETRON HCL INJ 2MG/ML 2ML 2 MG/ML VIAL IV PRN ×2 (00:08→04:18)
[2023-08-16] MEDS: Morphine 4mg INJECTION 4 MG/ML INJ IV PRN ×3 (00:10→08:40)
[2023-08-16] MEDS: SODIUM CHLORIDE 0.9% 1000ML 1,000 ML IV SCH ×2 (03:08→12:26)
[2023-08-16] MEDS: METRONIDAZOLE 500MG/NS 100ML 100 ML IV SCH ×4 (03:08→23:06)
[2023-08-16 07:10] LABS: BASOPHILS # (AUTO) 0.1 (0.0-0.1); BASOPHILS % 0.5 % (0.0-1.0); EOSINOPHILS % 0.4 % (0.0-6.0); HEMATOCRIT 53.8 % (38.2-49.6); HEMOGLOBIN 17.4 g/dL (14.0-18.0); LYMPHOCYTES # (AUTO) 1.3 (1.0-3.2); LYMPHOCYTES % 12.4 % (18.0-39.1); MEAN CORPUSCULAR HGB CONC 32.3 g/dL (31-35); MEAN CORPUSCULAR VOLUME 92.8 fL (81-99); MONOCYTES # (AUTO) 0.7 (0.2-0.8); MONOCYTES % 6.3 % (4.4-11.3); NEUTROPHILS # (AUTO) 8.4 (2.1-6.9); PLATELET COUNT 216 x10e3/uL (140-360); RED CELL DISTRIBUTION WIDTH 13.9 % (11.7-14.4); WHITE BLOOD COUNT 10.46 x10e3/uL (4.8-10.8)
[2023-08-16 07:40] LABS: TROPONIN I 0.005 ng/mL (0-0.300)
[2023-08-16 07:49] LABS: ALBUMIN 3.5 g/dL (3.5-5.0); ALBUMIN/GLOBULIN RATIO 0.9 (0.8-2.0); BILIRUBIN,TOTAL 0.7 mg/dL (0.2-1.2); CREATININE, SERUM 0.93 mg/dL (0.72-1.25); TOTAL PROTEIN 7.3 g/dL (6.5-8.1)
[2023-08-16] MEDS ORDERED: DEXTROSE 50% SYRINGE 50 ML IV PRN (10:45)
[2023-08-16] MEDS ORDERED: ACETAMINOPHEN 325 MG TAB PO PRN (10:45)
[2023-08-16] MEDS: INSULIN LISPRO 100 UNIT/1 ML 3ML VIAL SQ SCH ×5 (11:30→21:00)
[2023-08-16] MEDS: GABAPENTIN 300 MG CAP PO SCH (17:21)
[2023-08-16] MEDS: INSULIN DEGLUDEC 20 UNIT SQ SCH (21:00)
[2023-08-16 23:02] LABS: TROPONIN I 0.02 ng/mL (0-0.300)
[2023-08-17] VITALS (8 sets, daily range): BP systolic 112–137; BP diastolic 53–76; PULSE 63–72; RESP 14–18; TEMP 97.1–98.8; O2SAT 96–100
[2023-08-17] MEDS: SODIUM CHLORIDE 0.9% 1000ML 1,000 ML IV SCH ×2 (01:15→14:09)
[2023-08-17] MEDS: METRONIDAZOLE 500MG/NS 100ML 100 ML IV SCH ×4 (06:01→21:48)
[2023-08-17 06:23] LABS: BASOPHILS % 0.7 % (0.0-1.0); EOSINOPHILS # (AUTO) 0.2 (0.0-0.4); EOSINOPHILS % 2.8 % (0.0-6.0); HEMATOCRIT 51.3 % (38.2-49.6); HEMOGLOBIN 16.7 g/dL (14.0-18.0); LYMPHOCYTES # (AUTO) 1.5 (1.0-3.2); LYMPHOCYTES % 24.4 % (18.0-39.1); MEAN CORPUSCULAR HEMOGLOBIN 29.9 pg (28-32); MEAN CORPUSCULAR HGB CONC 32.6 g/dL (31-35); MEAN CORPUSCULAR VOLUME 91.8 fL (81-99); MONOCYTES # (AUTO) 0.5 (0.2-0.8); MONOCYTES % 8.1 % (4.4-11.3); NEUTROPHILS # (AUTO) 3.8 (2.1-6.9); NEUTROPHILS % 63.8 % (38.7-80.0); PLATELET COUNT 187 x10e3/uL (140-360); RED BLOOD COUNT 5.59 x10e6/uL (4.3-5.7); RED CELL DISTRIBUTION WIDTH 13.6 % (11.7-14.4); WHITE BLOOD COUNT 6.02 x10e3/uL (4.8-10.8)
[2023-08-17 06:46] LABS: ANION GAP 13.7 mmol/L (8-16); CALCIUM 8.5 mg/dL (8.4-10.2); CREATININE, SERUM 0.93 mg/dL (0.72-1.25); POTASSIUM 3.7 mmol/L (3.5-5.1)
[2023-08-17] MEDS: INSULIN LISPRO 100 UNIT/1 ML 3ML VIAL SQ SCH ×7 (07:30→22:01)
[2023-08-17] MEDS: LISINOPRIL 2.5 MG TAB PO SCH (10:11)
[2023-08-17] MEDS: GABAPENTIN 300 MG CAP PO SCH ×2 (10:11→16:56)
[2023-08-17] MEDS: INSULIN DEGLUDEC 20 UNIT SQ SCH (21:00)
[2023-08-18] VITALS: BP 95/58; PULSE 67; RESP 17; TEMP 98; O2SAT 96
[2023-08-18] MEDS: METRONIDAZOLE 500MG/NS 100ML 100 ML IV SCH ×2 (02:33→09:25)
[2023-08-18] MEDS: SODIUM CHLORIDE 0.9% 1000ML 1,000 ML IV SCH (03:42)
[2023-08-18 04:00] VITALS: BP 147/79; PULSE 61; RESP 18; TEMP 97.7; O2SAT 98
[2023-08-18 06:39] LABS: TROPONIN I 0.006 ng/mL (0-0.300)
[2023-08-18] MEDS: INSULIN LISPRO 100 UNIT/1 ML 3ML VIAL SQ SCH ×2 (07:30)
[2023-08-18 08:17] VITALS: BP 138/81; PULSE 70; RESP 17; TEMP 97.8; O2SAT 97
[2023-08-18 08:33] VITALS: BP 138/81; PULSE 70; RESP 17; TEMP 97.8; O2SAT 97
[2023-08-18] MEDS: GABAPENTIN 300 MG CAP PO SCH (09:20)
[2023-08-18 09:21] VITALS: BP 138/81
[2023-08-18] MEDS: LISINOPRIL 2.5 MG TAB PO SCH (09:21)
[2023-08-18] MEDS ORDERED: ONDANSETRON HCL 4 MG ORAL DISINTEGRATING TAB PO PRN (10:45)
[2023-08-18] MEDS ORDERED: METRONIDAZOLE 500 MG TAB PO SCH (14:00)
[2023-08-18] MEDS ORDERED: PANTOPRAZOLE SOD 40 MG TABEC PO SCH (16:30)
== END 2023-08-18 12:00 | disposition home or self-care (01) | DRG 392 ==
LOC: ER 14:31 → ERHOLD 19:23 → MED/SURG2 22:20
PROVIDERS: ADMIT Internal Medicine; ATTEND Internal Medicine
DX: K52.89 Other specified noninfective gastroenteritis and colitis (principal); Q61.02 Congenital multiple renal cysts; D72.829 Elevated white blood cell count, unspecified; E86.0 Dehydration; K76.0 Fatty (change of) liver, not elsewhere classified; K57.90 Diverticulosis of intestine, part unspecified, without perforation or abscess without bleeding; E66.01 Morbid (severe) obesity due to excess calories; E11.51 Type 2 diabetes mellitus with diabetic peripheral angiopathy without gangrene; Z89.429 Acquired absence of other toe(s), unspecified side; E78.5 Hyperlipidemia, unspecified; I10 Essential (primary) hypertension; Z20.822 Contact with and (suspected) exposure to COVID-19; Z68.34 Body mass index [BMI] 34.0-34.9, adult
CPT/HCPCS: 36415; 71045; 74177; 80048; 80053; 81001; 82550; 82948; 83690; 83735; 84484; 85025; 85610; 85730; 93005; 96361; 99284; J2270; J2405; J2543; J7030; Q9967; U0002